=== PATIENT | female | born 1950 | race Caucasian/White ===

== ENCOUNTER 2017-02-10 10:53 | Outpatient (RCR) | payer MEDICARE, OTHER | END 2017-03-03 13:10 | disposition home or self-care (01) | LOC: PT 10:53 | DX: M54.5 Low back pain (principal); G89.29 Other chronic pain ==

== ENCOUNTER 2017-12-15 09:00 | Outpatient (RCR) | payer MEDICARE, OTHER | END 2017-12-15 09:30 | disposition home or self-care (01) | LOC: PT 09:00 | DX: M25.511 Pain in right shoulder (principal) | CPT/HCPCS: G8985-GP ==

== ENCOUNTER → 2020-12-25 | Outpatient (CLI) | payer MEDICARE, OTHER | LOC: LAB 11:54 | DX: M48.062 Spinal stenosis, lumbar region with neurogenic claudication (principal); Z20.822 Contact with and (suspected) exposure to COVID-19 ==